=== PATIENT | male | born 1950 | race Caucasian/White ===

== ENCOUNTER 2020-03-01 10:36 | Inpatient (IN) | payer MEDICARE, MEDICAID ==
[~2020-03-01] VITALS: Ht 182.9 cm; Wt 123.8 kg
[2020-03-01] MEDS ORDERED: ASPIRIN 81MG TABLET PO ONE (12:15)
[2020-03-01 12:25] LABS: CHLORIDE 104 mEq/L (98-107)
[2020-03-01 12:27] LABS: BASOPHILS % 0.8 % (0.0-2.0); EOSINOPHILS % 6.9 % (0.0-5.0); HEMATOCRIT. 40.2 % (42.0-52.0); HEMOGLOBIN. 13.3 g/dL (14.0-18.0); LYMPHOCYTES % 34.1 % (20.0-50.0); MEAN CORPUSCULAR HEMOGLOBIN 31.1 pg (28.0-32.0); MEAN CORPUSCULAR VOLUME 93.6 fL (80.0-94.0); MEAN PLATELET VOLUME 9.7 fl (7.4-10.4); MONOCYTES % 9.1 % (2.0-8.0); NEUTROPHILS % 49.1 % (40.0-76.0); PLATELET 190 x1000/uL (130-400); RED BLOOD CELL COUNT 4.29 mill/uL (4.7-6.1)
[2020-03-01] MEDS ORDERED: LORAZEPAM 1MG TABLET PO ONE (16:30)
[2020-03-01] MEDS ORDERED: LORAZEPAM 2MG/ML CPJ ONE (16:39)
[2020-03-01] MEDS ORDERED: ACETAMINOPHEN 325MG TABLET PO PRN (17:15)
[2020-03-01] MEDS ORDERED: MAGNESIUM/ALUMINUM HYDROXIDE/SIMETHICONE 30ML UDC PO PRN (17:15)
[2020-03-01] MEDS ORDERED: NITROGLYCERIN 0.4MG TABLET SL SL PRN (17:15)
[2020-03-01] MEDS ORDERED: DOCUSATE SODIUM 100MG CAPSULE PO PRN (17:15)
[2020-03-01] MEDS ORDERED: MORPHINE SULFATE 2 MG/ML CPJ (NOT FOR IM USE) IV PRN (17:15)
[2020-03-01] MEDS ORDERED: ONDANSETRON HCL 4MG/2ML INJ IV PRN (17:15)
[2020-03-01] MEDS ORDERED: CLONIDINE 0.1MG TABLET PO PRN (17:15)
[2020-03-01] MEDS ORDERED: ENOXAPARIN 40MG/0.4ML SYR SUBCUT SCH (17:30)
[2020-03-01] MEDS: SODIUM CHLORIDE 0.9% 1,000 ML IV SCH ×2 (21:00→22:30)
[2020-03-02] VITALS (7 sets, daily range): BP systolic 123–162; BP diastolic 76–93
[2020-03-02] MEDS ORDERED: LIP40 MT (03:36)
[2020-03-02] MEDS ORDERED: ESCI10TA MT (03:36)
[2020-03-02] MEDS ORDERED: prostat PO (03:36)
[2020-03-02] MEDS ORDERED: GUAI5SYR3 PO (03:36)
[2020-03-02] MEDS ORDERED: LORA-250 PO (03:36)
[2020-03-02] MEDS ORDERED: ACUL5 EACHEYE (03:36)
[2020-03-02] MEDS ORDERED: FISH MT (03:36)
[2020-03-02] MEDS ORDERED: ALBU18HF2 IH (03:36)
[2020-03-02] MEDS ORDERED: LEVO50TA MT (03:36)
[2020-03-02] MEDS ORDERED: QUET200T PO (03:36)
[2020-03-02] MEDS ORDERED: FURO-151 MT (03:36)
[2020-03-02] MEDS ORDERED: DIVA500T3 PO (03:36)
[2020-03-02] MEDS ORDERED: FAMO-135 MT (03:36)
[2020-03-02] MEDS ORDERED: ENAL10TA71 MT (03:36)
[2020-03-02] MEDS ORDERED: CARB1TAB5 MT (03:36)
[2020-03-02] MEDS ORDERED: POLY15DR31 EACHEYE (03:36)
[2020-03-02] MEDS ORDERED: DOCU250C14 MT (03:36)
[2020-03-02] MEDS ORDERED: CHOL100022 PO (03:36)
[2020-03-02] MEDS ORDERED: GABA300C MT (03:36)
[2020-03-02] MEDS ORDERED: ASCO-339 MT (03:36)
[2020-03-02] MEDS ORDERED: MULT-230 MT (03:36)
[2020-03-02] MEDS ORDERED: COR6 MT (03:36)
[2020-03-02 06:39] LABS: BASOPHILS % 0.7 % (0.0-2.0); EOSINOPHILS % 7.7 % (0.0-5.0); HEMOGLOBIN. 13.4 g/dL (14.0-18.0); LYMPHOCYTES % 28.3 % (20.0-50.0); MEAN CORPUSCULAR HEMOGLOBIN 31.5 pg (28.0-32.0); MEAN CORPUSCULAR VOLUME 93.8 fL (80.0-94.0); MONOCYTES % 11.4 % (2.0-8.0); NEUTROPHILS % 51.9 % (40.0-76.0); PLATELET 179 x1000/uL (130-400); RED BLOOD CELL COUNT 4.27 mill/uL (4.7-6.1); RED CELL DISTRIBUTION WIDTH 15.1 % (11.6-14.6)
[2020-03-02 06:57] LABS: CHLORIDE 103 mEq/L (98-107)
[2020-03-02 07:14] LABS: CREATINE KINASE 71 IU/L (39-308); LDL CHOLESTEROL 64 mg/dL (5-100)
[2020-03-02 07:16] LABS: HDL CHOLESTEROL 42 mg/dL (40-59)
[2020-03-02 07:20] LABS: CREATINE KINASE MB FRACTION < 1.0 ng/mL (0.5-3.6)
[2020-03-02] MEDS: ASPIRIN 81MG EC TABLET PO SCH (10:32)
[2020-03-02] MEDS ORDERED: ALBUTEROL 6.7GM HFA INHALER ORI PRN (10:45)
[2020-03-02] MEDS ORDERED: FAMOTIDINE(NEO) 1MG/ML SUSP PO SCH (10:45)
[2020-03-02] MEDS ORDERED: ALBUTEROL (0.083%) 2.5MG/3ML NEB HHN PRN (11:15)
[2020-03-02] MEDS: FAMOTIDINE 20MG TABLET PO SCH ×2 (11:17→17:45)
[2020-03-02] MEDS: FUROSEMIDE 40MG TABLET PO SCH (11:18)
[2020-03-02] MEDS: FISH OIL/OMEGA-3 FATTY ACIDS 1000MG CAPSULE PO SCH (11:18)
[2020-03-02] MEDS: CHOLECALCIFEROL (D3) 1000 UNIT TABLET PO SCH (11:18)
[2020-03-02] MEDS: DIVALPROEX SODIUM 500MG DR TABLET PO SCH ×3 (11:18→17:48)
[2020-03-02] MEDS: LEVOTHYROXINE SODIUM 50MCG TABLET PO SCH (11:18)
[2020-03-02] MEDS: CARVEDILOL 6.25 MG TABLET PO SCH ×2 (11:19→21:31)
[2020-03-02] MEDS: GUAIFENESIN 200MG/10ML SUGAR FREE UDC PO PRN ×2 (11:31→17:54)
[2020-03-02] MEDS: GABAPENTIN 300MG CAPSULE PO SCH ×2 (12:55→17:45)
[2020-03-02] MEDS: CARBIDOPA/LEVODOPA 25/100MG TABLET CR PO SCH ×2 (12:56→17:45)
[2020-03-02] MEDS: KETOROLAC TROMETHAMINE 0.5% OPHTH 3ML EACHEYE SCH ×3 (13:00→21:24)
[2020-03-02 16:28] LABS: CREATINE KINASE 90 IU/L (39-308); CREATINE KINASE MB FRACTION < 1.0 ng/mL (0.5-3.6); T4 FREE 1.18 ng/dL (0.76-1.46)
[2020-03-02] MEDS: DOCUSATE SODIUM 250MG CAPSULE PO SCH (17:45)
[2020-03-02] MEDS: DOXYCYCLINE 100 MG in DEXT 5% WATER 100 ML IV SCH (17:45)
[2020-03-02] MEDS: IPRATROPIUM/ALBUTEROL 0.5-3(2.5)MG/3ML NEB HHN SCH (20:31)
[2020-03-02] MEDS ORDERED: ATORVASTATIN CALCIUM 40MG TABLET PO SCH (21:00)
[2020-03-02] MEDS: ENOXAPARIN 40MG/0.4ML SYR SUBCUT SCH (21:26)
[2020-03-02] MEDS: QUETIAPINE FUMARATE 50MG TABLET PO SCH (21:30)
[2020-03-02] MEDS: ATORVASTATIN CALCIUM 40MG TABLET PO SCH (21:31)
[2020-03-03] VITALS (7 sets, daily range): BP systolic 100–159; BP diastolic 67–97
[2020-03-03] MEDS: IPRATROPIUM/ALBUTEROL 0.5-3(2.5)MG/3ML NEB HHN SCH ×3 (02:05→21:36)
[2020-03-03] MEDS: DOXYCYCLINE 100 MG in DEXT 5% WATER 100 ML IV SCH ×2 (04:17→16:22)
[2020-03-03] MEDS: LEVOTHYROXINE SODIUM 50MCG TABLET PO SCH (06:24)
[2020-03-03] MEDS: KETOROLAC TROMETHAMINE 0.5% OPHTH 3ML EACHEYE SCH ×4 (08:48→21:16)
[2020-03-03] MEDS: CHOLECALCIFEROL (D3) 1000 UNIT TABLET PO SCH (08:49)
[2020-03-03] MEDS: DIVALPROEX SODIUM 500MG DR TABLET PO SCH ×3 (08:49→16:22)
[2020-03-03] MEDS: DOCUSATE SODIUM 250MG CAPSULE PO SCH ×2 (08:49→16:23)
[2020-03-03] MEDS: FAMOTIDINE 20MG TABLET PO SCH ×2 (08:49→21:07)
[2020-03-03] MEDS: FISH OIL/OMEGA-3 FATTY ACIDS 1000MG CAPSULE PO SCH (08:49)
[2020-03-03] MEDS: ENOXAPARIN 40MG/0.4ML SYR SUBCUT SCH ×2 (08:49→21:06)
[2020-03-03] MEDS: FUROSEMIDE 40MG TABLET PO SCH (08:50)
[2020-03-03] MEDS: ASPIRIN 81MG EC TABLET PO SCH (08:50)
[2020-03-03] MEDS: CARVEDILOL 6.25 MG TABLET PO SCH ×2 (08:50→21:07)
[2020-03-03] MEDS: QUETIAPINE FUMARATE 50MG TABLET PO SCH ×2 (08:51→21:06)
[2020-03-03] MEDS: CARBIDOPA/LEVODOPA 25/100MG TABLET CR PO SCH ×2 (08:51→16:22)
[2020-03-03] MEDS: GABAPENTIN 300MG CAPSULE PO SCH ×3 (08:51→16:23)
[2020-03-03] MEDS: GUAIFENESIN 200MG/10ML SUGAR FREE UDC PO PRN (12:19)
[2020-03-03] MEDS: ATORVASTATIN CALCIUM 40MG TABLET PO SCH (21:07)
[2020-03-04] VITALS: BP 130/77
[2020-03-04] MEDS: GUAIFENESIN 200MG/10ML SUGAR FREE UDC PO PRN (02:53)
[2020-03-04 04:00] VITALS: BP 133/85
[2020-03-04] MEDS: DOXYCYCLINE 100 MG in DEXT 5% WATER 100 ML IV SCH (04:00)
[2020-03-04] MEDS: LEVOTHYROXINE SODIUM 50MCG TABLET PO SCH (06:30)
[2020-03-04 08:00] VITALS: BP 128/86
[2020-03-04] MEDS: GABAPENTIN 300MG CAPSULE PO SCH ×3 (08:58→16:08)
[2020-03-04] MEDS: ENOXAPARIN 40MG/0.4ML SYR SUBCUT SCH (08:58)
[2020-03-04] MEDS: CARBIDOPA/LEVODOPA 25/100MG TABLET CR PO SCH ×2 (08:58→16:08)
[2020-03-04] MEDS: FUROSEMIDE 40MG TABLET PO SCH (08:59)
[2020-03-04] MEDS: ASPIRIN 81MG EC TABLET PO SCH (08:59)
[2020-03-04] MEDS: QUETIAPINE FUMARATE 50MG TABLET PO SCH ×2 (08:59→20:48)
[2020-03-04] MEDS: CARVEDILOL 6.25 MG TABLET PO SCH ×2 (08:59→20:48)
[2020-03-04] MEDS: DIVALPROEX SODIUM 500MG DR TABLET PO SCH ×3 (08:59→16:08)
[2020-03-04] MEDS: FISH OIL/OMEGA-3 FATTY ACIDS 1000MG CAPSULE PO SCH (08:59)
[2020-03-04] MEDS: FAMOTIDINE 20MG TABLET PO SCH ×2 (08:59→20:48)
[2020-03-04] MEDS: CHOLECALCIFEROL (D3) 1000 UNIT TABLET PO SCH (08:59)
[2020-03-04] MEDS: LORAZEPAM 1MG TABLET PO PRN ×2 (09:00→16:08)
[2020-03-04] MEDS: KETOROLAC TROMETHAMINE 0.5% OPHTH 3ML EACHEYE SCH ×4 (09:01→20:53)
[2020-03-04] MEDS: DOCUSATE SODIUM 250MG CAPSULE PO SCH ×2 (09:01→16:09)
[2020-03-04] MEDS: IPRATROPIUM/ALBUTEROL 0.5-3(2.5)MG/3ML NEB HHN SCH ×3 (09:40→20:53)
[2020-03-04 12:00] VITALS: BP 132/80
[2020-03-04] MEDS: DOXYCYCLINE HYCLATE 100MG CAPSULE PO SCH ×2 (12:01→20:48)
[2020-03-04 20:00] VITALS: BP 144/86
[2020-03-04] MEDS: ATORVASTATIN CALCIUM 40MG TABLET PO SCH (20:48)
[2020-03-04] MEDS ORDERED: ENOXAPARIN 30MG/0.3ML SYR SUBCUT SCH (21:00)
[2020-03-04 21:37] VITALS: BP 144/86
== END 2020-03-04 22:00 | DRG 205 ==
LOC: ER 10:36 → 6WST 15:32 → EDBEDREQ 15:35 → ENRESERV 21:11 → 6EST 03-03 22:00
PROVIDERS: ADMIT Hospitalist; ATTEND Hospitalist
DX: M94.0 Chondrocostal junction syndrome [Tietze] (principal); J96.00 Acute respiratory failure, unspecified whether with hypoxia or hypercapnia; I50.33 Acute on chronic diastolic (congestive) heart failure; J45.901 Unspecified asthma with (acute) exacerbation; L03.115 Cellulitis of right lower limb; L03.116 Cellulitis of left lower limb; I11.0 Hypertensive heart disease with heart failure; E03.9 Hypothyroidism, unspecified; E78.5 Hyperlipidemia, unspecified; F02.80 Dementia in other diseases classified elsewhere, unspecified severity, without behavioral disturbance, psychotic disturbance, mood disturbance, and anxiety; F20.9 Schizophrenia, unspecified; F31.9 Bipolar disorder, unspecified; F41.9 Anxiety disorder, unspecified; G20 Parkinson's disease; I45.10 Unspecified right bundle-branch block; K21.9 Gastro-esophageal reflux disease without esophagitis; I87.8 Other specified disorders of veins; E78.00 Pure hypercholesterolemia, unspecified; G62.9 Polyneuropathy, unspecified; Z87.891 Personal history of nicotine dependence; Z88.0 Allergy status to penicillin; Z79.51 Long term (current) use of inhaled steroids; Z79.899 Other long term (current) drug therapy
CPT/HCPCS: 36415; 71045; 80053; 80061; 82550; 82553; 83880; 84439; 84443; 84484; 85025; 93005; 93306; 93970; 94640; 99285; J1650; J2060; J2270; J3490; J7060